=== PATIENT | female | born 1970 | race Caucasian/White ===

== ENCOUNTER → 2016-07-26 | Outpatient (CLI) | payer OTHER ==
--- NOTE | 2016-07-26 12:16 | DX ---
Chest, Two Views 1155 hours History: Chronic cough, J 18.9 Comparison: April 2016 Findings: Cardiac silhouette is within normal range. No pneumonia, congestive heart failure, pleura l effusion, or pneumothorax. Impression: No focal pneumonia.
== END ==
LOC: FIMAGING 11:51
PROVIDERS: ATTEND Physician Assistant
DX: R05 Cough (principal)

== ENCOUNTER 2017-01-06 00:45 | Emergency (ER) | payer OTHER ==
[2017-01-06 00:51] VITALS: RESP 18; TEMP 98.2
--- NOTE | 2017-01-06 00:53 | EDPHY ---
H & P Stated Complaint: V/D, abd pain since 1999 tonight HPI/ROS: HPI CHIEF COMPLAINT: Nausea, vomiting, diarrhea, abdominal cramping HISTORY OF PRESENT ILLNESS: This patient very pleasant 46-year-old female significant past medical history for obstructive sleep apnea, otherwise healthy , presents emergency room with nausea, vomiting, diarrhea that started around 8: 00 p.m. this evening. She did have dinner out at a restaurant. She had steak and a baked potato. However nobody else was sick in her group that she with. She states around 8 o'clock she developed abdominal cramping with associated nausea, vomiting and diarrhea. Nonbilious nonbloody. She did have an enchilada for lunch this morning she tells me that she vomited most of her enchilada up. She tells me she bone approximately 7 times prior to arrival. Multiple episodes of watery nonbloody diarrhea. She decided come the emergency room if she has ongoing nausea vomiting with abdominal cramps diffuse. No focal area of tenderness. No fever. Past Medical History: Obstructive sleep apnea Past Surgical History: Cholecystectomy Social History: Works as a pediatric physician assistant to the ceo, denies illicit drugs alcohol tobacco products Family History: Noncontributory ROS REVIEW OF SYSTEMS: A comprehensive 10 point review of systems is otherwise negative aside from elements mentioned in the history of present illness. Exam Constitutional appears well nontoxic, triage nursing summary reviewed, vital signs reviewed, awake/alert. Eyes normal conjunctivae and sclera, EOMI, PERRLA. HENT normal inspection, atraumatic, moist mucus membranes, no epistaxis, neck supple/ no meningismus, no raccoon eyes. Respiratory clear to auscultation bilaterally, normal breath sounds, no respiratory distress, no wheezing. Cardiovascular rate normal, regular rhythm, no murmur, no edema, distal pulses normal. Gastrointestinal soft, mild tenderness diffusely , no rebound, no guarding, normal bowel sounds, no distension, no pulsatile mass. Genitourinary no CVA tenderness. Musculoskeletal no midline vertebral tenderness, full range of motion, no calf swelling, no tenderness of extremities, no meningismus, good pulses, neurovascularly intact. Skin pink, warm, & dry, no rash, skin atraumatic. Neurologic awake, alert and oriented x 3, AAOx3, moves all 4 extremities equally, motor intact, sensory intact, CN II-XII intact, normal cerebellar, normal vision, normal speech. Psychiatric normal mood/affect. Heme/Lymph/Immune no lymphadenopathy. Differential diagnosis includes but is not limited to and in no particular order : Food-borne illness, viral illness, viral GI illness, Bowel obstruction, appendicitis, gallbladder disease, diverticulitis, colitis, enteritis, perforated viscus, gastritis, GERD, esophagitis, urinary tract infection, pyelonephritis, kidney stones Medical Decision Making: Plan for this patient IV establishment, check blood work including abdominal labs, IV fluid bolus 2 L normal saline, IV Zofran for nausea check urinalysis. At this time she has mild tenderness diffusely no focal area tenderness. Will re-evaluate after fluid bolus and Zofran. Abdominal blood work. Do not feel the patient benefit from a CT scan at this time. This most likely either food-borne illness or viral illness. Re-evaluation: 0246: Patient still complaining of diffuse severe 10/10 crampy abdominal pain. She has no requesting IV pain medicine. Orders 6 mg IV morphine and 6.25 mg IV Phenergan. Patient is on her 3rd L she initially had elevated lactic acid due to dehydration nausea vomiting. Due to patient's ongoing abdominal pain severe will proceed with CT abdomen pelvis with IV contrast to rule out acute intra-abdominal pathology including appendicitis. 0321:CT scan of the abdomen pelvis with IV contrast. The results of the study are this shows enteritis, fluid-filled small bowel intestines. No free air no free fluid. No significant inflammatory process.. The study was read by Dr. Siegel I viewed the images myself on the PACS system. 0444: Patient feels better. The nausea is resolved abdominal pain is resolved. CT scan reviewed shows enteritis. Lactic acid is trend down after 2 L. no indication to repeat her lactic acid as she is not septic. Lactic acid was elevated due to dehydration. Nausea vomiting. She has not any nausea vomiting here in the emergency room she p.o. challenge well. She is requesting discharge. Prescription for Zofran. She understands return emergency room if she has any worsening symptoms or feels worse. This includes abdominal pain, fever, vomiting. Source: Patient - Personal History LMP (Females 10-55): 15-21 Days Ago Current Tetanus/Diphtheria Vaccine: Yes Current Tetanus Diphtheria and Acellular Pertussis (TDAP): Yes Tetanus Vaccine Date: within last 10 years - Medical/Surgical History Hx Asthma: No Hx Chronic Respiratory Disease: No Hx Diabetes: No Hx Cardiac Disease: No Hx Renal Disease: No Hx Cirrhosis: No Hx Alcoholism: No Hx HIV/AIDS: No Hx Splenectomy or Spleen Trauma: No Other PMH: gallbladder removed 2011, - Social History Smoking Status: Never smoked Constitutional: Initial Vital Signs Temperature (C) 36.8 C 01/06/17 00:47 Heart Rate 108 H 01/06/17 00:47 Respiratory Rate 18 01/06/17 00:47 Blood Pressure 89/78 L 01/06/17 00:47 O2 Sat (%) 99 01/06/17 00:47 O2 Delivery Mode Room Air Allergies/Adverse Reactions: codeine [Codeine] Allergy (Severe, Verified 01/06/17 00:50) Vomiting Penicillins Allergy (Verified 01/06/17 00:50) Home Medications: Medication Instructions Recorded Advair 500/50 (*) 01/06/17 Claritin 01/06/17 Nasacort 01/06/17 Ondansetron HCl [Zofran] 4 mg PO Q4-6PRN PRN #10 tablet 01/06/17 Medical Decision Making - Data Points Laboratory Results: Laboratory Results 01/06/17 01:00 01/06/17 01:00 01/06/17 01/06/17 01/06/17 02:15 02:13 01:00 WBC RBC Hgb Hct MCV MCH MCHC RDW Plt Count MPV Neut % (Auto) Lymph % (Auto) Rock % (Auto) Eos % (Auto) Baso % (Auto) Nucleat RBC Rel Count Absolute Neuts (auto) Absolute Lymphs (auto) Absolute Monos (auto) Absolute Eos (auto) Absolute Basos (auto) Absolute Nucleated RBC Immature Gran % Immature Gran # PT INR APTT VBG Lactic Acid 2.3 mmol/L H D mmol/L (0.7-2.1) Sodium Potassium Chloride Carbon Dioxide Anion Gap BUN Creatinine Estimated GFR Glucose Calcium Total Bilirubin Conjugated Bilirubin Unconjugated Bilirubin AST ALT Alkaline Phosphatase Total Protein Albumin Lipase Beta HCG, Qual NEGATIVE Urine Color PALE YELLOW Urine Appearance CLEAR Urine pH 7.0 (5.0-7.5) Ur Specific Fitzhugh 1.008 (1.002-1.030) Urine Protein NEGATIVE (NEGATIVE) Urine Ketones NEGATIVE (NEGATIVE) Urine Blood NEGATIVE (NEGATIVE) Urine Nitrate NEGATIVE (NEGATIVE) Urine Bilirubin NEGATIVE (NEGATIVE) Urine Urobilinogen NEGATIVE EU EU (0.2-1.0) Ur Leukocyte Esterase NEGATIVE (NEGATIVE) Urine Glucose NEGATIVE (NEGATIVE) 01/06/17 01/06/17 01/06/17 01:00 01:00 01:00 WBC 11.90 10^3/uL H 10^3/uL (3.80-9.50) RBC 4.31 10^6/uL 10^6/uL (4.18-5.33) Hgb 13.5 g/dL g/dL (12.6-16.3) Hct 38.6 % % (38.0-47.0) MCV 89.6 fL fL (81.5-99.8) MCH 31.3 pg pg (27.9-34.1) MCHC 35.0 g/dL g/dL (32.4-36.7) RDW 12.2 % % (11.5-15.2) Plt Count 204 10^3/uL 10^3/uL (150-400) MPV 10.0 fL fL (8.7-11.7) Neut % (Auto) 79.3 % H % (39.3-74.2) Lymph % (Auto) 10.5 % L % (15.0-45.0) Rock % (Auto) 9.0 % % (4.5-13.0) Eos % (Auto) 0.6 % % (0.6-7.6) Baso % (Auto) 0.3 % % (0.3-1.7) Nucleat RBC Rel Count 0.0 % % (0.0-0.2) Absolute Neuts (auto) 9.44 10^3/uL H 10^3/uL (1.70-6.50) Absolute Lymphs (auto) 1.25 10^3/uL 10^3/uL (1.00-3.00) Absolute Monos (auto) 1.07 10^3/uL H 10^3/uL (0.30-0.80) Absolute Eos (auto) 0.07 10^3/uL 10^3/uL (0.03-0.40) Absolute Basos (auto) 0.03 10^3/uL 10^3/uL (0.02-0.10) Absolute Nucleated RBC 0.00 10^3/uL 10^3/uL (0-0.01) Immature Gran % 0.3 % % (0.0-1.1) Immature Gran # 0.04 10^3/uL 10^3/uL (0.00-0.10) PT 16.5 SEC H SEC (12.0-15.0) INR 1.33 H (0.83-1.16) APTT 22.7 SEC L SEC (23.0-38.0) VBG Lactic Acid Sodium 139 mEq/L mEq/L (134-144) Potassium 3.7 mEq/L mEq/L (3.5-5.2) Chloride 106 mEq/L mEq/L (97-110) Carbon Dioxide 18 mEq/l L mEq/l (22-31) Anion Gap 15 mEq/L mEq/L (8-16) BUN 13 mg/dL mg/dL (7-23) Creatinine 0.8 mg/dL mg/dL (0.6-1.0) Estimated GFR > 60 Glucose 156 mg/dL H mg/dL (70-100) Calcium 9.4 mg/dL mg/dL (8.5-10.4) Total Bilirubin 0.5 mg/dL mg/dL (0.1-1.4) Conjugated Bilirubin 0.2 mg/dL mg/dL (0.0-0.5) Unconjugated Bilirubin 0.3 mg/dL mg/dL (0.0-1.1) AST 20 IU/L IU/L (14-46) ALT 42 IU/L IU/L (9-52) Alkaline Phosphatase 55 IU/L IU/L (38-126) Total Protein 7.2 g/dL g/dL (6.3-8.2) Albumin 4.7 g/dL g/dL (3.5-5.0) Lipase 102.0 IU/L IU/L (23-300) Beta HCG, Qual Urine Color Urine Appearance Urine pH Ur Specific Fitzhugh Urine Protein Urine Ketones Urine Blood Urine Nitrate Urine Bilirubin Urine Urobilinogen Ur Leukocyte Esterase Urine Glucose 01/06/17 01:00 WBC RBC Hgb Hct MCV MCH MCHC RDW Plt Count MPV Neut % (Auto) Lymph % (Auto) Rock % (Auto) Eos % (Auto) Baso % (Auto) Nucleat RBC Rel Count Absolute Neuts (auto) Absolute Lymphs (auto) Absolute Monos (auto) Absolute Eos (auto) Absolute Basos (auto) Absolute Nucleated RBC Immature Gran % Immature Gran # PT INR APTT VBG Lactic Acid 3.3 mmol/L H mmol/L (0.7-2.1) Sodium Potassium Chloride Carbon Dioxide Anion Gap BUN Creatinine Estimated GFR Glucose Calcium Total Bilirubin Conjugated Bilirubin Unconjugated Bilirubin AST ALT Alkaline Phosphatase Total Protein Albumin Lipase Beta HCG, Qual Urine Color Urine Appearance Urine pH Ur Specific Fitzhugh Urine Protein Urine Ketones Urine Blood Urine Nitrate Urine Bilirubin Urine Urobilinogen Ur Leukocyte Esterase Urine Glucose Medications Given: Discontinued Medications Haloperidol Lactate (Haldol Injection) 2.5 mg IM EDNOW ONE Stop: 01/06/17 03:30 Last Admin: 01/06/17 03:32 Dose: 2.5 mg Sodium Chloride (Ns) 1,000 mls @ 0 mls/hr IV ONCE ONE; Wide Open PRN Reason: Protocol Stop: 01/06/17 00:55 Last Admin: 01/06/17 01:05 Dose: 1,000 mls Sodium Chloride (Ns) 1,000 mls @ 0 mls/hr IV ONCE ONE PRN Reason: Wide Open Stop: 01/06/17 00:57 Last Admin: 01/06/17 01:05 Dose: 1,000 mls Sodium Chloride (Ns) 1,000 mls @ 0 mls/hr IV ONCE ONE PRN Reason: Wide Open Stop: 01/06/17 02:06 Last Admin: 01/06/17 02:10 Dose: 1,000 mls Morphine Sulfate (Morphine) 6 mg IVP EDNOW ONE Stop: 01/06/17 02:45 Last Admin: 01/06/17 03:00 Dose: 6 mg Ondansetron HCl (Zofran) 4 mg IVP EDNOW ONE Stop: 01/06/17 00:55 Last Admin: 01/06/17 01:05 Dose: 4 mg Ondansetron HCl (Zofran) 4 mg IVP EDNOW ONE Stop: 01/06/17 02:03 Last Admin: 01/06/17 02:05 Dose: 4 mg Promethazine HCl (Phenergan) 6.25 mg IVP ONCE ONE Stop: 01/06/17 02:45 Last Admin: 01/06/17 02:55 Dose: 6.25 mg Departure - Departure Disposition: Home, Routine, Self-Care Clinical Impression: Vomiting and diarrhea Condition: Good Instructions: Acute Nausea and Vomiting (ED), Abdominal Pain (ED) Additional Instructions: 1. Return to the emergency room if you develop worsening abdominal pain, fever, or vomiting. Referrals: Verónica Mcginnis PA [Primary Care Provider] - As per Instructions Prescriptions: Ondansetron HCl [Zofran] 4 mg PO Q4-6PRN PRN #10 tablet PRN Reason: Nausea/Vomiting, Use 1st
[2017-01-06] MEDS ORDERED: NS 1,000 ML IV ONE ×3 (00:54→02:05)
[2017-01-06] MEDS ORDERED: ONDANSETRON 4 MG/2 ML VIAL IVP ONE ×2 (00:54→02:02)
[2017-01-06 01:15] LABS: % IMMATURE GRANULYOCYTES 0.3 % (0.0-1.1); ABSOLUTE IMMATURE GRANULOCYTES 0.04 10^3/uL (0.00-0.10); ADD DIFF? NO; ADD MORPH? NO; ADD SCAN? NO; ATYPICAL LYMPHOCYTE FLAG 10 (0-99); FRAGMENT RBC FLAG 0 (0-99); HEMATOCRIT 38.6 % (38.0-47.0); HEMOGLOBIN 13.5 g/dL (12.6-16.3); LEFT SHIFT FLG 0 (0-99); LIPEMIA HEMOLYSIS FLAG 90 (0-99); MEAN CELL HEMOGLOBIN 31.3 pg (27.9-34.1); MEAN CELL VOLUME 89.6 fL (81.5-99.8); PLATELET CLUMPS FLAG 0 (0-99); PLATELET COUNT 204 10^3/uL (150-400); RED BLOOD CELL COUNT 4.31 10^6/uL (4.18-5.33); RED CELL DISTRIBUTION WIDTH 12.2 % (11.5-15.2)
[2017-01-06 01:24] LABS: INR 1.33 (0.83-1.16); PROTIME(PATIENT) 16.5 SEC (12.0-15.0)
[2017-01-06 01:25] LABS: APTT 22.7 SEC (23.0-38.0)
[2017-01-06 01:31] LABS: ALANINE AMINOTRANSFERASE 42 IU/L (9-52); ALBUMIN 4.7 g/dL (3.5-5.0); ALKALINE PHOSPHATASE 55 IU/L (38-126); ANION GAP 15 mEq/L (8-16); ASPARTATE AMINOTRANSFERASE 20 IU/L (14-46); BILIRUBIN,TOTAL 0.5 mg/dL (0.1-1.4); BILIRUBIN-CONJUGATED 0.2 mg/dL (0.0-0.5); BILIRUBIN-UNCONJUGATED 0.3 mg/dL (0.0-1.1); CALCIUM 9.4 mg/dL (8.5-10.4); CARBON DIOXIDE 18 mEq/l (22-31); CHLORIDE 106 mEq/L (97-110); CREATININE 0.8 mg/dL (0.6-1.0); GLOMERULAR FILTRATION RATE > 60; GLUCOSE 156 mg/dL (70-100); POTASSIUM 3.7 mEq/L (3.5-5.2); SODIUM 139 mEq/L (134-144); TOTAL PROTEIN 7.2 g/dL (6.3-8.2)
[2017-01-06 02:26] LABS: COLOR PALE YELLOW; LEUKOCYTE ESTERASE,URINE NEGATIVE (NEGATIVE); NITRITE,URINE NEGATIVE (NEGATIVE)
[2017-01-06] MEDS ORDERED: PROMETHAZINE HCL 25 MG/ML INJ IVP ONE (02:44)
[2017-01-06] MEDS ORDERED: IOPAMIDOL (ISOVUE-300) 100 ML BTL ONE (02:49)
[2017-01-06] MEDS ORDERED: HALOPERIDOL LACT 5 MG/ML INJ IVP ONE (03:24)
[2017-01-06] MEDS ORDERED: HALOPERIDOL LACT 5 MG/ML INJ IM ONE (03:29)
[2017-01-06 04:31] VITALS: BP 97/60; PULSE 102; O2SAT 93
[2017-01-06] MEDS ORDERED: ONDANSETRON 4MG PREPACK#2 BTL TAKEHOME ONE ×2 (05:05→05:09)
== END 2017-01-06 05:14 | disposition home or self-care (01) ==
DX: R11.10 Vomiting, unspecified (principal); R19.7 Diarrhea, unspecified; Z90.49 Acquired absence of other specified parts of digestive tract
CPT/HCPCS: 96374; J2405; J2550; Q9967

== ENCOUNTER 2017-12-01 13:46 | Emergency (ER) | payer OTHER ==
[2017-12-01] MEDS ORDERED: NS 1,000 ML IV ONE (14:12)
[2017-12-01] MEDS ORDERED: HALOPERIDOL LACT 5 MG/ML INJ IVP ONE (14:13)
[2017-12-01] MEDS ORDERED: PROMETHAZINE HCL 25 MG/ML INJ IVP ONE (14:14)
[2017-12-01] MEDS ORDERED: MAG HYDROX/AL HYDROX/SIMETH 30 ML UDCUP PO ONE (14:16)
[2017-12-01] MEDS ORDERED: LIDOCAINE 2% VISCOUS 15 ML UDCUP PO ONE (14:16)
[2017-12-01] MEDS ORDERED: HYOSCYAMINE SULFATE 0.125 MG TAB PO ONE (14:16)
--- NOTE | 2017-12-01 14:20 | EDPHY ---
HPI/HX/ROS/PE/MDM Narrative: CHIEF COMPLAINT: Vomiting, chest pain HISTORY OF PRESENT ILLNESS: This patient is a 47 y/o female complaining of vomiting and chest pain. This morning, she had a stomach ache and began vomiting while at work. She took Zofran but continued to vomit. She had two episodes of diarrhea. She endorses cramping abdominal pain. Around when her symptoms started, she developed pain in her chest as well. Her chest discomfort is in the mid sternal region and is worse with deep inspiration, cough, or movement. This has been ongoing for three hours and is constant. She has never had chest pain in the past associated with stomach upset. Additionally, she has felt lightheaded. The patient felt well yesterday. 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 She denies history of reflux, indigestion , GERD. No fever, chills, shortness of breath, palpitations, urinary complaints , headache. No blood in the vomit or diarrhea. REVIEW OF SYSTEMS: Aside from elements discussed in the HPI, a comprehensive 10-point review of systems was reviewed and is negative. PAST MEDICAL HISTORY: Cholecystectomy. SOCIAL HISTORY: . Lives in [place]. Works for [employer]. VITAL SIGNS: Reviewed by me GENERAL: Pale. Well-developed, well-nourished. HEENT: Atraumatic. Eyes: Petechia over eyelids. No icterus, no injection. Mouth : moist mucous membranes. No erythema or lesions. Neck: supple with no adenopathy. LUNGS: Clear to auscultation bilaterally, no wheezes, rhonchi or rales. CARDIAC: Mild tachycardia, no rubs, murmurs or gallops. No tenderness over the chest wall. No crepitus. No subq air noted. ABDOMEN: Mild diffuse abdominal tenderness, mild distension. Soft, bowel sounds normal. BACK: No CVA tenderness. EXTREMITIES: No trauma. No edema. Range of motion is normal throughout. NEURO: Alert and oriented, grossly nonfocal. SKIN: Pale, cool, clammy. PSYCHIATRIC: Normal mentation, no agitation. Portions of this note were transcribed by a medical review coordinator. I personally performed a history, physical exam, medical decision making, and confirmed accuracy of information the transcribed note. ED Course: 47 y/o female presents with vomiting, diarrhea, and chest pain ongoing since this morning. She has continued to vomit after taking Zofran. She states has been treated successfully with Benadryl, Phenergan, and Haldol in the past. Plan for EKG. Plan to administer GI cocktail for further symptom relief. Plan for labs including CBC, chemistries, lipase, troponin. Plan for GI pathogen test if patient can provide a stool sample. 12-LEAD EKG: Please see the full report in [facility]. My interpretation: Sinus tachycardia; no ischemic changes. Troponin negative. Chest x-ray negative for acute processes. No evidence of pneumomediastinum, pneumothorax, or pneumonia. I suspect the patient's chest discomfort is related to esophageal irritation. Patient was reexamined by myself at 4:00 p.m. She has been asleep. She reports her nausea has improved. She has received a small amount of IV fluids. We will provide 750-1000 mL of normal saline and then provide a p.o. Challenge. Patient passed a p.o. Challenge. She is feeling improved. She was discharged with a prescription for Zofran to use as needed for any ongoing nausea vomiting. Instructions regarding a bland diet were discussed. MDM: Differential diagnosis of the patient's nausea and vomiting was considered including but not limited to gastroenteritis, gastritis, alcohol intoxication, withdrawal symptoms, intraabdominal processes including appendicitis, pancreatitis, bowel obstruction and medication side effect. - Data Points Imaging Results: CXR: Impression: No acute abnormality. Dictated By: Zeyad Cooper MD Imaging: I viewed and interpreted images myself Laboratory Results: Laboratory Results 12/01/17 14:45 12/01/17 14:05 Medications Given: Discontinued Medications Al Hydroxide/Mg Hydroxide (Maalox Susp) 30 ml PO ONCE ONE Stop: 12/01/17 14:17 Last Admin: 12/01/17 14:30 Dose: 30 ml Diphenhydramine HCl (Benadryl Injection) 25 mg IVP EDNOW ONE Stop: 12/01/17 14:14 Last Admin: 12/01/17 14:32 Dose: 25 mg Haloperidol Lactate (Haldol Injection) 2.5 mg IVP EDNOW ONE Stop: 12/01/17 14:14 Last Admin: 12/01/17 14:32 Dose: 2.5 mg Hyoscyamine Sulfate (Levsin, Hyomax-Sl) 0.25 mg PO ONCE ONE Stop: 12/01/17 14:17 Last Admin: 12/01/17 14:29 Dose: 0.25 mg Sodium Chloride (Ns) 1,000 mls @ 0 mls/hr IV EDNOW ONE; Wide Open PRN Reason: Protocol Stop: 12/01/17 14:13 Last Admin: 12/01/17 14:29 Dose: 1,000 mls Lidocaine (Lidocaine 2% Viscous) 15 ml PO ONCE ONE Stop: 12/01/17 14:17 Last Admin: 12/01/17 14:30 Dose: 15 ml Miscellaneous Information (Patch Removal) 1 ea TD DAILY21 BARBARA Stop: 05/30/18 20:59 Last Admin: 12/01/17 14:50 Dose: 1 ea Miscellaneous Medication (Icy Hot Lidocaine/Menthol 4%/1% Patch) 1 patch TD EDNOW ONE Stop: 12/01/17 14:29 Last Admin: 12/01/17 14:40 Dose: Not Given Promethazine HCl (Phenergan) 12.5 mg IVP EDNOW ONE Stop: 12/01/17 14:15 Last Admin: 12/01/17 14:32 Dose: 12.5 mg General Time Seen by Provider: 12/01/17 13:58 Initial Vital Signs: Initial Vital Signs Temperature (C) 37.2 C 12/01/17 13:47 Heart Rate 112 H 12/01/17 13:47 Respiratory Rate 18 12/01/17 13:47 Blood Pressure 101/70 12/01/17 13:47 O2 Sat (%) 98 12/01/17 13:47 O2 Delivery Mode Room Air Allergies/Adverse Reactions: codeine [Codeine] Allergy (Severe, Verified 12/01/17 13:47) Vomiting Penicillins Allergy (Mild, Verified 12/01/17 13:50) Rash Home Medications: Medication Instructions Recorded Ondansetron Odt [Zofran Odt 4 mg 4 mg PO Q6 PRN #8 tab 12/01/17 (RX)] Promethazine HCl [Phenergan 25mg 12.5 - 25 mg PO Q8HRS PRN #10 tab 12/01/17 (*)] Departure - Departure Disposition: Home, Routine, Self-Care Clinical Impression: Vomiting and diarrhea Condition: Good Instructions: Acute Nausea and Vomiting (ED) Additional Instructions: Follow up with your primary care physician in 1-2 days. Stay well hydrated. Take Zofran and Phenergan as prescribed as needed for nausea. For your abdominal pain and vomiting, I suggested you start with a bland diet and advance as tolerated. This means start with clear liquids such as water, Gatorade, juice, flat non- caffeinated soda. If you tolerate clear liquids, then you may add bland foods such as bananas, rice, or toast. If you do not have any worsening of your symptoms, you may begin to resume a regular diet. Return to the emergency department for fever, uncontrollable vomiting or diarrhea, chest pain, shortness of breath, or other worsening of condition or further concerns. Referrals: Verónica Mcginnis PA [Primary Care Provider] - As per Instructions Prescriptions: Promethazine HCl [Phenergan 25mg (*)] 12.5 - 25 mg PO Q8HRS PRN #10 tab PRN Reason: nausea Ondansetron Odt [Zofran Odt 4 mg (RX)] 4 mg PO Q6 PRN #8 tab PRN Reason: Nausea Report Scribed for: Melisa Pruitt Report Scribed by: Kecia Brantley Date of Report: 12/01/17 Time of Report: 16:41
[2017-12-01] MEDS ORDERED: LIDOCAINE 4%/MENTHOL 1% PATCH TD ONE (14:28)
--- NOTE | 2017-12-01 14:49 | CPEKG ---
Heart Rate: 107 RR Interval: 561 P-R Interval: 136 QRSD Interval: 90 QT Interval: 340 QTC Interval: 454 P Rock [place]: 56 QRS Rock [place]: -9 T Wave [place]: 72 EKG Severity - BORDERLINE ECG - EKG Impression: SINUS TACHYCARDIA EKG Impression: BORDERLINE T ABNORMALITIES, ANT-LAT LEADS Electronically Signed By: Steve Farris 03-Dec-2017 08:58:31
[2017-12-01 14:53] LABS: PLATELET COUNT 167 10^3/uL (150-400)
[2017-12-01 17:16] VITALS: BP 112/71
[2017-12-01] MEDS ORDERED: PATCH REMOVAL 1 EA PATCH TD SCH (21:00)
== END 2017-12-01 17:16 | disposition home or self-care (01) ==
DX: R11.10 Vomiting, unspecified (principal); R19.7 Diarrhea, unspecified; E86.9 Volume depletion, unspecified; Z90.49 Acquired absence of other specified parts of digestive tract
CPT/HCPCS: 96374; J1200; J1630; J2550

== ENCOUNTER → 2018-05-08 | Outpatient (CLI) | payer OTHER | LOC: FIMAGING 10:51 | PROVIDERS: ATTEND Physician Assistant | DX: Z12.31 Encounter for screening mammogram for malignant neoplasm of breast (principal) ==